=== PATIENT | male | born 1960 | race African-American/Black ===

== ENCOUNTER 2019-04-21 13:58 | Emergency (ER) | payer MEDICARE, MEDICAID ==
[~2019-04-21] VITALS: Ht 188 cm; Wt 117.9 kg
[2019-04-21 14:30] VITALS: BP 145/70
--- NOTE | 2019-04-21 15:13 | Emergency Room Report ---
History of Present Illness General Chief Complaint: General Complaint Source: Patient Present Illness HPI 58-year-old male presents to the emergency department for help entering into an assisted living. Is requesting that we obtain physical medical record from [facility]. He denies pain at this time he has no medical complaints. He has moved to this area from the . 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 Patient is also requesting a walker.Denies CP, Palpitations, LOC, AMS, dizziness, Changes in Vision, Sensation, paresthesias, or a sudden severe headache. Allergies: Coded Allergies: No Known Allergies (Unverified , 04/21/19) Patient History Past Medical History: see triage record, CVA/TIA - with deficits Past Surgical History: other Pertinent Family History: none Immunizations: UTD Reviewed Nursing Documentation: PMH: Agreed; PSxH: Agreed Review of Systems All Other Systems: negative except mentioned in HPI Physical Exam Vital Signs Date Time Temp Pulse Resp B/P (MAP) Pulse Ox O2 Delivery O2 Flow Rate FiO2 04/21/19 14:16 98.8 102 16 133/83 (100) 97 Room Air Sp02 EP Interpretation: reviewed, normal General Appearance: no apparent distress, alert, GCS 15, non-toxic Head: normocephalic, atraumatic Eyes: bilateral eye normal inspection, bilateral eye PERRL ENT: hearing grossly normal, normal voice Neck: full range of motion Respiratory: chest non-tender, lungs clear, normal breath sounds, speaking full sentences Cardiovascular #1: regular rate, rhythm Musculoskeletal: normal inspection, non-tender Neurologic: alert, oriented x3, responsive, sensory intact, speech normal, motor weakness - Left upper arm, grossly normal Psychiatric: judgement/insight normal Skin: normal color, no rash, warm/dry, well hydrated Medical Decision Making PA Attestation Dr. Santoro is my supervising Physician whom patient management has been discussed with. Diagnostic Impression: Primary Impression: Encounter for medical screening examination Additional Impression: Help needed for obtaining assistive device ER Course 58-year-old male presents to the emergency department for help entering into an assisted living. Is requesting that we obtain physical medical record from [facility]. He denies pain at this time he has no medical complaints. He has moved to this area from the . 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 Patient is also requesting a walker.Denies CP, Palpitations, LOC, AMS, dizziness, Changes in Vision, Sensation, paresthesias, or a sudden severe headache. Ddx considered but are not limited to AMS, ETOH, infection, Trauma/Fall, CVA, [place] , Psych, homelessness Vital signs: are WNL, pt. is afebrile H&PE are most consistent with Normal Medical Screening exam and limited Physical Exam. No acute injury or disease noted at this time. pt. is NAD, NON- toxic, able to answer questions appropriately, pt. is oriented, and no signs of trauma or new focal neurological deficits. -Pt. is not homeless- he is assisted by his daughter who is current caregiver ORDERS: none required at this time, the diagnosis is clinical ED INTERVENTIONS: -D/w pt. and Caregiver the standard process in which to obtain copies of the pt. 's health records so they can give to the assisted living in which they are interested in. There is no emergent condition so ER interventions are not necessary at this time. will provide rx for walker. Pt. is stable for close outpatient follow up. DISCHARGE: At this time pt. is stable for d/c to home. Will provide printed patient care instructions, and any necessary prescriptions. Care plan and follow up instructions have been discussed with the patient prior to discharge. Last Vital Signs Date Time Temp Pulse Resp B/P (MAP) Pulse Ox O2 Delivery O2 Flow Rate FiO2 04/21/19 14:20 98 20 Room Air 04/21/19 14:16 98.8 133/83 (100) 97 Status: unchanged Disposition: HOME, SELF-CARE Condition: Stable Scripts Walker (ULTRA-LIGHT ROLLATOR) 1 Each Each EACH for assistance in ambulation, #1 Prov: Jessenia English 04/21/19 Patient Instructions: Medical Screening Exam Additional Instructions: Take previously prescribed medications as directed. Contact [facility]- ask for medical records, and see if they would fax them to the new facility. Follow up with a Primary Care Provider in 3-5 days, even if your symptoms have resolved. Return sooner to ED if new symptoms occur, or current symptoms become worse. - Please note that this Emergency Department Report was dictated using [employer] technology software, occasionally this can lead to erroneous entry secondary to interpretation by the dictation equipment. Jessenia English April 21, 2019 15:13
[2019-04-21] MEDS ORDERED: ULTRA-LIGHT RO1 EACH MC (15:14)
[2019-04-21 15:20] VITALS: BP 136/85
--- NOTE | 2019-04-21 15:20 | NUR ---
ER DISCHARGE NOTE: Pt was seen for recommendation and eval. Patient is cleared to be discharged per PA, pt is aox4, on room air, with stable vital signs. pt was given dc and prescription instructions, pt was able to verbalize understanding, pt id band removed. pt is able to ambulate with steady gait. pt took all belongings and left via wheelchair with his .
== END 2019-04-21 15:30 | disposition home or self-care (01) ==
LOC: EMR 14:58
DX: Z00.00 Encounter for general adult medical examination without abnormal findings (principal); G81.94 Hemiplegia, unspecified affecting left nondominant side
CPT/HCPCS: 99281